=== PATIENT | male | born 1975 | race Two or more races ===

== ENCOUNTER 2023-10-02 12:20 | Inpatient (IN) | payer MEDICAID, OTHER ==
[~2023-10-02] VITALS: Ht 172.7 cm; Wt 63.5 kg
[2023-10-02 13:38] LABS: Basophils # (auto) 0.1 10 ^3/uL (0-0.2); Basophils % (auto) 0.5 % (0.0-2.0); Eosinophils # (auto) 0 10 ^3/uL (0-0.8); Eosinophils % (auto) 0.3 % (0.0-7.0); Hemoglobin 11.9 g/dL (13.5-17.5); Lymphocytes # (auto) 2.3 10 ^3/uL (0.4-5.4); Lymphocytes % (auto) 15.4 % (10.0-50.0); Mean Corpuscular Hemoglobin 30.2 pg (28.0-32.0); Mean Corpuscular Hgb Conc. 33.1 g/dL (32.0-36.0); Mean Corpuscular Volume 91.3 fL (80.0-100.0); Monocytes # (auto) 1.3 10 ^3/uL (0-1.3); Monocytes % (auto) 8.5 % (0.0-12.0); Neutrophils # (auto) 11.1 10 ^3/uL (1.6-8.6); Neutrophils % (auto) 75.3 % (37.0-80.0); Red Blood Cells 3.94 10^6/uL (4.5-5.90); Red Cell Distribution Width 12.1 % (11.8-14.3); White Blood Cell 14.8 10^3/uL (4.4-10.8)
[2023-10-02 13:55] LABS: Alanine Aminotransferase 77 U/L (7-40); Albumin 3.9 g/dL (3.2-4.8); Alkaline Phosphatase 140 U/L (46-116); Anion Gap 4 (5-15); Aspartate Aminotransferase 50 U/L (13-40); BUN/Creatinine Ratio 25.5 (10.0-20.0); Bilirubin, Total 0.3 mg/dL (0.2-1.0); Blood Urea Nitrogen 12 mg/dL (9-23); Calcium 9.2 mg/dL (8.5-10.1); Carbon Dioxide 29 mmol/L (20-30); Chloride 98 mmol/L (98-107); Glucose 91 mg/dL (74-106); Potassium 4.2 mmol/L (3.5-5.1); Sodium 131 mmol/L (136-145); Total Protein 7.4 g/dL (5.7-8.2)
[2023-10-02 13:58] LABS: INR 1.07 (0.9-1.15); Partial Thromboplastin Time 30.9 SEC (24.5-34.5); Prothrombin Time 11.3 sec (9.3-11.8)
[2023-10-02] MEDS: SODIUM CHLORIDE 0.9% 1,000 ML IV ONE (20:39)
[2023-10-02] MEDS: cefTRIAXone 1GM/50ML D5W 50 ML IV ONE (20:39)
[2023-10-02] MEDS ORDERED: ONDANSETRON HCL 4 MG/2 ML VIAL IV PRN (22:30)
[2023-10-02] MEDS ORDERED: ACETAMINOPHEN 325 MG TAB PO PRN (22:30)
[2023-10-02] MEDS ORDERED: HYDROcodone-ACET 5/325MG TAB PO PRN (22:30)
[2023-10-02 22:52] LABS: Urine Bacteria None Seen /hpf (None Seen)
[2023-10-02 23:15] LABS: Chloride 99 mmol/L (98-107); Potassium 4.2 mmol/L (3.5-5.1); Sodium 130 mmol/L (136-145)
[2023-10-02 23:16] LABS: Anion Gap 5 (5-15); Carbon Dioxide 26 mmol/L (20-30)
[2023-10-02 23:20] LABS: Urine Blood Negative /uL (Negative); Urine Clarity Clear (Clear); Urine Color Yellow (Yellow); Urine Protein, UAD TRACE (Negative); Urine Specific Gravity 1.022 (1.001-1.035); Urine Urobilinogen 2 mg/dL (Negative); Urine WBC <1 /hpf (0 - 3); Urine pH 8.5 (5.0-9.0)
[2023-10-02 23:21] LABS: Blood Urea Nitrogen 9 mg/dL (9-23); Glucose 83 mg/dL (74-106)
[2023-10-03] VITALS (9 sets, daily range): BP systolic 100–114; BP diastolic 63–77; PULSE 52–82; RESP 17–21; TEMP 97.7–98.1; O2SAT 94–97
[2023-10-03] MEDS: CLINDAMYCIN 600MG IV 50 ML IV SCH (02:16)
[2023-10-03 06:15] LABS: Basophils # (auto) 0.1 10 ^3/uL (0-0.2); Basophils % (auto) 0.5 % (0.0-2.0); Eosinophils # (auto) 0.1 10 ^3/uL (0-0.8); Eosinophils % (auto) 0.7 % (0.0-7.0); Hematocrit 35.6 % (41.0-53.0); Hemoglobin 11.7 g/dL (13.5-17.5); Lymphocytes # (auto) 2.3 10 ^3/uL (0.4-5.4); Lymphocytes % (auto) 21.3 % (10.0-50.0); Mean Corpuscular Hgb Conc. 32.9 g/dL (32.0-36.0); Mean Corpuscular Volume 91.4 fL (80.0-100.0); Monocytes % (auto) 9.4 % (0.0-12.0); Neutrophils # (auto) 7.5 10 ^3/uL (1.6-8.6); Neutrophils % (auto) 68.1 % (37.0-80.0); Red Cell Distribution Width 12.1 % (11.8-14.3)
[2023-10-03] MEDS ORDERED: cefTRIAXone 1GM/50ML D5W 50 ML IV SCH (09:00)
[2023-10-03] MEDS: FLUoxetine HCL 20 MG CAP PO SCH (10:38)
[2023-10-03] MEDS: ENOXAPARIN SOD 40 MG/0.4 ML SYRINGE SC SCH (10:38)
[2023-10-03] MEDS: cefTRIAXone 1GM/50ML D5W 50 ML IV SCH (10:40)
[2023-10-03] MEDS ORDERED: IPRATROPIUM BROM 0.5 MG/2.5ML INH SOL NEB PRN (15:15)
[2023-10-03] MEDS ORDERED: ONDANSETRON HCL 4 MG/2 ML VIAL IV PRN (15:15)
[2023-10-03] MEDS ORDERED: DOCUSATE SOD 100 MG CAP PO PRN (15:15)
[2023-10-03] MEDS ORDERED: ALBUTEROL SULF 2.5 MG/0.5ML(0.5%) NEB SOLN NEB PRN (15:15)
[2023-10-03] MEDS ORDERED: ACETAMINOPHEN 500 MG TAB PO PRN (15:15)
[2023-10-03] MEDS: MICAFUNGIN SODIUM 100 MG in SODIUM CHL 0.9% 100 ML IV SCH (18:32)
[2023-10-03] MEDS: NYSTATIN TOPICAL POWDER 15GM TOP SCH (22:00)
[2023-10-04] VITALS (9 sets, daily range): BP systolic 105–110; BP diastolic 66–72; PULSE 68–78; RESP 17–18; TEMP 97.2–98.4; O2SAT 94–95
[2023-10-04 06:03] LABS: Basophils # (auto) 0 10 ^3/uL (0-0.2); Basophils % (auto) 0.4 % (0.0-2.0); Eosinophils # (auto) 0.1 10 ^3/uL (0-0.8); Eosinophils % (auto) 0.5 % (0.0-7.0); Hematocrit 36.5 % (41.0-53.0); Hemoglobin 12.1 g/dL (13.5-17.5); Lymphocytes # (auto) 2.1 10 ^3/uL (0.4-5.4); Lymphocytes % (auto) 17.5 % (10.0-50.0); Mean Corpuscular Hemoglobin 30.2 pg (28.0-32.0); Mean Corpuscular Hgb Conc. 33.2 g/dL (32.0-36.0); Mean Corpuscular Volume 90.8 fL (80.0-100.0); Monocytes # (auto) 1.2 10 ^3/uL (0-1.3); Monocytes % (auto) 10.4 % (0.0-12.0); Neutrophils # (auto) 8.5 10 ^3/uL (1.6-8.6); Neutrophils % (auto) 71.2 % (37.0-80.0); Red Blood Cells 4.02 10^6/uL (4.5-5.90); Red Cell Distribution Width 12.2 % (11.8-14.3)
[2023-10-04 06:35] LABS: Alanine Aminotransferase 50 U/L (7-40); Albumin 3.7 g/dL (3.2-4.8); Alkaline Phosphatase 115 U/L (46-116); Anion Gap 9 (5-15); Aspartate Aminotransferase 29 U/L (13-40); BUN/Creatinine Ratio 22.7 (10.0-20.0); Blood Urea Nitrogen 10 mg/dL (9-23); Calcium 9.5 mg/dL (8.7-10.4); Carbon Dioxide 25 mmol/L (20-30); Chloride 95 mmol/L (98-107); Glucose 93 mg/dL (74-106); Potassium 3.9 mmol/L (3.5-5.1); Sodium 129 mmol/L (136-145)
[2023-10-04 06:36] LABS: Bilirubin, Total 0.3 mg/dL (0.2-1.0); Total Protein 7.1 g/dL (5.7-8.2)
[2023-10-04] MEDS: FLORASTOR (S. BOULARDII) 250 MG CAP PO SCH (09:39)
[2023-10-04] MEDS: LACTULOSE 20Gm/30ML SOLN PO SCH (23:48)
[2023-10-05] VITALS (9 sets, daily range): BP systolic 110–116; BP diastolic 72–77; PULSE 76–83; RESP 16–18; TEMP 97.5–99.3; O2SAT 93–96
[2023-10-05] MEDS ORDERED: levoFLOXacin 500MG 100 ML IV ONE (10:15)
[2023-10-05] MEDS: levoFLOXacin 750MG 150 ML IV ONE (10:45)
[2023-10-05 17:49] LABS: Basophils # (auto) 0.1 10 ^3/uL (0-0.2); Eosinophils # (auto) 0 10 ^3/uL (0-0.8); Lymphocytes # (auto) 2.6 10 ^3/uL (0.4-5.4); Lymphocytes % (auto) 21.3 % (10.0-50.0); Nucleated Red Blood Cells % 0.1 %; Red Cell Distribution Width 12.3 % (11.8-14.3); White Blood Cell 12.3 10^3/uL (4.4-10.8)
[2023-10-05 17:51] LABS: Eosinophils % (auto) 0.1 % (0.0-7.0); Hematocrit 38.7 % (41.0-53.0); Hemoglobin 13.3 g/dL (13.5-17.5); Mean Corpuscular Hemoglobin 31.1 pg (28.0-32.0); Mean Corpuscular Hgb Conc. 34.4 g/dL (32.0-36.0); Mean Corpuscular Volume 90.3 fL (80.0-100.0); Monocytes # (auto) 1.1 10 ^3/uL (0-1.3); Monocytes % (auto) 8.6 % (0.0-12.0); Neutrophils # (auto) 8.5 10 ^3/uL (1.6-8.6); Red Blood Cells 4.29 10^6/uL (4.5-5.90)
[2023-10-06] VITALS (9 sets, daily range): BP systolic 110–125; BP diastolic 66–82; PULSE 76–91; RESP 16–19; TEMP 97.4–98.7; O2SAT 94–98
[2023-10-06 06:08] LABS: Basophils # (auto) 0.1 10 ^3/uL (0-0.2); Eosinophils # (auto) 0.1 10 ^3/uL (0-0.8); Mean Corpuscular Volume 90.5 fL (80.0-100.0)
[2023-10-06 06:13] LABS: Basophils % (auto) 0.6 % (0.0-2.0); Eosinophils % (auto) 0.9 % (0.0-7.0); Hematocrit 39.5 % (41.0-53.0); Hemoglobin 13.3 g/dL (13.5-17.5); Lymphocytes # (auto) 2.4 10 ^3/uL (0.4-5.4); Lymphocytes % (auto) 19.8 % (10.0-50.0); Mean Corpuscular Hemoglobin 30.6 pg (28.0-32.0); Mean Corpuscular Hgb Conc. 33.8 g/dL (32.0-36.0); Monocytes # (auto) 1.1 10 ^3/uL (0-1.3); Neutrophils # (auto) 8.5 10 ^3/uL (1.6-8.6); Neutrophils % (auto) 69.7 % (37.0-80.0); Red Blood Cells 4.36 10^6/uL (4.5-5.90); Red Cell Distribution Width 11.9 % (11.8-14.3); White Blood Cell 12.2 10^3/uL (4.4-10.8)
[2023-10-06 06:16] LABS: Alanine Aminotransferase 57 U/L (7-40); Albumin 3.8 g/dL (3.2-4.8); Alkaline Phosphatase 118 U/L (46-116); Anion Gap 8 (5-15); Aspartate Aminotransferase 34 U/L (13-40); BUN/Creatinine Ratio 27.1 (10.0-20.0); Bilirubin, Total 0.3 mg/dL (0.2-1.0); Blood Urea Nitrogen 13 mg/dL (9-23); Calcium 9.4 mg/dL (8.7-10.4); Carbon Dioxide 25 mmol/L (20-30); Chloride 97 mmol/L (98-107); Glucose 94 mg/dL (74-106); Potassium 4.1 mmol/L (3.5-5.1); Sodium 130 mmol/L (136-145)
[2023-10-06 06:17] LABS: Total Protein 7.4 g/dL (5.7-8.2)
[2023-10-06] MEDS ORDERED: levoFLOXacin 500MG 100 ML IV SCH (10:00)
[2023-10-06] MEDS: HYDROcodone-ACET 5/325MG TAB PO PRN (12:34)
[2023-10-06] MEDS: levoFLOXacin 750MG 150 ML IV SCH (16:34)
[2023-10-06] MEDS: MUPIROCIN 2% OINT 15gm or 22gm FOR MRSA NARES EACHNOSTRI SCH (21:57)
[2023-10-07 00:58] VITALS: BP 116/76; PULSE 80; RESP 16; TEMP 97.5; O2SAT 95
[2023-10-07 05:05] VITALS: BP 116/74; PULSE 86; RESP 17; TEMP 97.8; O2SAT 93
[2023-10-07 09:00] VITALS: BP 121/83; PULSE 87; RESP 18; TEMP 97.8
[2023-10-07 12:36] VITALS: BP 114/70; PULSE 89; RESP 16; TEMP 98
[2023-10-07 16:33] VITALS: BP 115/75; PULSE 88; RESP 16; TEMP 97.8
[2023-10-07 22:00] VITALS: BP 118/76; PULSE 86; RESP 20; TEMP 97.5; O2SAT 94
[2023-10-08 01:00] VITALS: BP 111/76; PULSE 83; RESP 18; TEMP 97.8; O2SAT 93
[2023-10-08 05:00] VITALS: BP 113/76; PULSE 85; TEMP 97.6; O2SAT 94
[2023-10-08 06:26] LABS: Basophils # (auto) 0.1 10 ^3/uL (0-0.2); Basophils % (auto) 0.4 % (0.0-2.0); Eosinophils # (auto) 0.1 10 ^3/uL (0-0.8); Hemoglobin 13.2 g/dL (13.5-17.5)
[2023-10-08 06:30] LABS: Eosinophils % (auto) 0.5 % (0.0-7.0); Lymphocytes # (auto) 2.9 10 ^3/uL (0.4-5.4); Lymphocytes % (auto) 17.9 % (10.0-50.0); Mean Corpuscular Hemoglobin 30.4 pg (28.0-32.0); Mean Corpuscular Hgb Conc. 33.7 g/dL (32.0-36.0); Mean Corpuscular Volume 90.2 fL (80.0-100.0); Monocytes # (auto) 1.4 10 ^3/uL (0-1.3); Monocytes % (auto) 8.7 % (0.0-12.0); Neutrophils # (auto) 11.9 10 ^3/uL (1.6-8.6); Neutrophils % (auto) 72.5 % (37.0-80.0); Red Blood Cells 4.32 10^6/uL (4.5-5.90); Red Cell Distribution Width 12.2 % (11.8-14.3); White Blood Cell 16.5 10^3/uL (4.4-10.8)
[2023-10-08 06:38] LABS: Alanine Aminotransferase 37 U/L (7-40); Albumin 3.7 g/dL (3.2-4.8); Alkaline Phosphatase 105 U/L (46-116); Anion Gap 7 (5-15); Aspartate Aminotransferase 18 U/L (13-40); BUN/Creatinine Ratio 25.5 (10.0-20.0); Bilirubin, Total 0.3 mg/dL (0.2-1.0); Blood Urea Nitrogen 13 mg/dL (9-23); Calcium 9.3 mg/dL (8.7-10.4); Carbon Dioxide 26 mmol/L (20-30); Chloride 94 mmol/L (98-107); Glucose 90 mg/dL (74-106); Potassium 4.4 mmol/L (3.5-5.1); Sodium 127 mmol/L (136-145); Total Protein 7.2 g/dL (5.7-8.2)
[2023-10-08 08:55] VITALS: BP 122/78; PULSE 86; RESP 16; TEMP 97.8; O2SAT 95
[2023-10-08 12:33] VITALS: BP 109/69; PULSE 85; RESP 18; TEMP 97.7; O2SAT 96
[2023-10-08 17:00] VITALS: BP 124/73; PULSE 85; RESP 16; TEMP 97.8; O2SAT 98
[2023-10-08 20:41] VITALS: BP 131/81; PULSE 82; RESP 18; TEMP 97.8; O2SAT 97
[2023-10-09 01:00] VITALS: BP 127/77; PULSE 78; RESP 18; TEMP 98.2; O2SAT 93
[2023-10-09 05:02] VITALS: BP 124/84; PULSE 84; RESP 18; TEMP 98; O2SAT 98
[2023-10-09 07:02] LABS: Basophils # (auto) 0.1 10 ^3/uL (0-0.2); Basophils % (auto) 0.4 % (0.0-2.0); Eosinophils # (auto) 0.1 10 ^3/uL (0-0.8); Eosinophils % (auto) 0.7 % (0.0-7.0); Hematocrit 41.6 % (41.0-53.0); Hemoglobin 14.1 g/dL (13.5-17.5); Lymphocytes # (auto) 3.4 10 ^3/uL (0.4-5.4); Lymphocytes % (auto) 21.4 % (10.0-50.0); Mean Corpuscular Hemoglobin 30.6 pg (28.0-32.0); Mean Corpuscular Hgb Conc. 33.9 g/dL (32.0-36.0); Mean Corpuscular Volume 90.3 fL (80.0-100.0); Monocytes # (auto) 1.3 10 ^3/uL (0-1.3); Monocytes % (auto) 8.1 % (0.0-12.0); Neutrophils # (auto) 10.9 10 ^3/uL (1.6-8.6); Neutrophils % (auto) 69.4 % (37.0-80.0); Red Blood Cells 4.61 10^6/uL (4.5-5.90); Red Cell Distribution Width 12.2 % (11.8-14.3); White Blood Cell 15.8 10^3/uL (4.4-10.8)
[2023-10-09 07:27] LABS: Anion Gap 0 (5-15); Carbon Dioxide 30 mmol/L (20-30); Chloride 92 mmol/L (98-107); Potassium 4.4 mmol/L (3.5-5.1)
[2023-10-09 07:28] LABS: Calcium 9.5 mg/dL (8.5-10.1)
[2023-10-09 07:33] LABS: BUN/Creatinine Ratio 17.3 (10.0-20.0); Blood Urea Nitrogen 9 mg/dL (9-23); Glucose 88 mg/dL (74-106)
[2023-10-09 07:37] LABS: Sodium 122 mmol/L (136-145)
[2023-10-09 09:09] VITALS: BP 124/78; PULSE 85; RESP 16; TEMP 98.6; O2SAT 95
[2023-10-09 12:47] VITALS: BP 120/83; PULSE 42; RESP 20; TEMP 98.1; O2SAT 94
[2023-10-09] MEDS: FUROSEMIDE 20 MG TAB PO ONE (17:12)
[2023-10-09 17:24] VITALS: BP 124/68; PULSE 51; RESP 16; TEMP 98.4; O2SAT 95
[2023-10-09 21:00] VITALS: BP 109/73; PULSE 91; RESP 17; TEMP 98.7; O2SAT 95
[2023-10-10 00:56] VITALS: BP 114/82; PULSE 74; RESP 16; TEMP 97.6; O2SAT 95
[2023-10-10 05:00] VITALS: BP 119/80; PULSE 84; RESP 17; TEMP 98.3; O2SAT 96
[2023-10-10 08:30] VITALS: BP_SYST 116; BP_SYST 120; BP_DIAS 66; BP_DIAS 79; PULSE 68; PULSE 80; RESP 18; RESP 19; TEMP 98; TEMP 98.2; O2SAT 94; O2SAT 96
[2023-10-10 12:30] VITALS: BP 116/69; PULSE 71; RESP 20; TEMP 98.1; O2SAT 95
[2023-10-10] MEDS: NYSTATIN TOPICAL POWDER 15GM TOP SCH (13:18)
[2023-10-10 14:39] LABS: Basophils # (auto) 0.1 10 ^3/uL (0-0.2); Eosinophils # (auto) 0 10 ^3/uL (0-0.8)
[2023-10-10 14:40] LABS: Basophils % (auto) 0.8 % (0.0-2.0); Eosinophils % (auto) 0.3 % (0.0-7.0); Hematocrit 42.4 % (41.0-53.0); Lymphocytes # (auto) 2.8 10 ^3/uL (0.4-5.4); Lymphocytes % (auto) 20.4 % (10.0-50.0); Mean Corpuscular Hemoglobin 29.8 pg (28.0-32.0); Mean Corpuscular Volume 90.3 fL (80.0-100.0); Monocytes # (auto) 1.2 10 ^3/uL (0-1.3); Neutrophils # (auto) 9.5 10 ^3/uL (1.6-8.6); Neutrophils % (auto) 69.5 % (37.0-80.0); Red Cell Distribution Width 12.3 % (11.8-14.3); White Blood Cell 13.7 10^3/uL (4.4-10.8)
[2023-10-10 14:48] LABS: Chloride 94 mmol/L (98-107); Potassium 4.3 mmol/L (3.5-5.1); Sodium 122 mmol/L (136-145)
[2023-10-10 14:49] LABS: Anion Gap 6 (5-15); Calcium 9.4 mg/dL (8.5-10.1); Carbon Dioxide 22 mmol/L (20-30)
[2023-10-10 14:54] LABS: BUN/Creatinine Ratio 17.5 (10.0-20.0); Blood Urea Nitrogen 10 mg/dL (9-23); Glucose 115 mg/dL (74-106)
[2023-10-10 16:57] VITALS: BP 119/76; PULSE 78; RESP 20; TEMP 98; O2SAT 97
[2023-10-10 21:00] VITALS: BP 118/70; PULSE 82; RESP 18; TEMP 98; O2SAT 96
[2023-10-11 01:00] VITALS: BP 116/76; PULSE 75; RESP 18; TEMP 97.9; O2SAT 96
[2023-10-11 05:00] VITALS: BP 118/72; PULSE 76; RESP 20; TEMP 98; O2SAT 97
[2023-10-11 09:00] VITALS: BP 122/82; PULSE 82; RESP 19; TEMP 97.7; O2SAT 95
[2023-10-11] MEDS: levoFLOXacin 500 MG TAB PO SCH (11:36)
[2023-10-11 12:47] VITALS: BP 110/77; PULSE 77; RESP 21; O2SAT 95
[2023-10-11] MEDS: AMPICILLIN SOD 2GM INJ 2 GM in SODIUM CHL 0.9% 100 ML IV SCH (18:50)
[2023-10-11 20:00] VITALS: RESP 18
[2023-10-11 21:00] VITALS: BP 119/77; PULSE 97; RESP 18; TEMP 99; O2SAT 93
[2023-10-11] MEDS: SODIUM CHLORIDE 1 GM TAB PO SCH (21:39)
[2023-10-12 01:00] VITALS: BP 127/79; PULSE 87; RESP 19; TEMP 98.7; O2SAT 96
[2023-10-12 09:00] VITALS: BP 130/77; PULSE 78; RESP 17; TEMP 97.7; O2SAT 95
[2023-10-12 11:14] LABS: Basophils # (auto) 0.1 10 ^3/uL (0-0.2); Lymphocytes % (auto) 24.7 % (10.0-50.0)
[2023-10-12 11:15] LABS: Basophils % (auto) 0.6 % (0.0-2.0); Eosinophils # (auto) 0.1 10 ^3/uL (0-0.8); Eosinophils % (auto) 0.6 % (0.0-7.0); Hematocrit 39.9 % (41.0-53.0); Hemoglobin 13.7 g/dL (13.5-17.5); Lymphocytes # (auto) 2.5 10 ^3/uL (0.4-5.4); Mean Corpuscular Hemoglobin 30.9 pg (28.0-32.0); Mean Corpuscular Hgb Conc. 34.4 g/dL (32.0-36.0); Mean Corpuscular Volume 89.8 fL (80.0-100.0); Monocytes # (auto) 1.1 10 ^3/uL (0-1.3); Monocytes % (auto) 10.4 % (0.0-12.0); Neutrophils # (auto) 6.5 10 ^3/uL (1.6-8.6); Neutrophils % (auto) 63.7 % (37.0-80.0); Red Blood Cells 4.44 10^6/uL (4.5-5.90); Red Cell Distribution Width 12.5 % (11.8-14.3); White Blood Cell 10.3 10^3/uL (4.4-10.8)
[2023-10-12 11:33] LABS: Chloride 96 mmol/L (98-107); Potassium 4.3 mmol/L (3.5-5.1); Sodium 126 mmol/L (136-145)
[2023-10-12 11:34] LABS: Anion Gap 6 (5-15); Calcium 9.2 mg/dL (8.7-10.4); Carbon Dioxide 24 mmol/L (20-30)
[2023-10-12 11:39] LABS: BUN/Creatinine Ratio 17.4 (10.0-20.0); Blood Urea Nitrogen 8 mg/dL (9-23); Glucose 94 mg/dL (74-106)
[2023-10-12] MEDS: FUROSEMIDE 40 MG TAB PO SCH (11:42)
[2023-10-12] MEDS: POTASSIUM EFFERVESENT TAB 25 MEQ PO SCH (11:43)
[2023-10-12 13:00] VITALS: BP 118/77; PULSE 82; RESP 21; TEMP 97.8; O2SAT 96
[2023-10-12] MEDS: MICAFUNGIN SODIUM 100 MG in SODIUM CHL 0.9% 100 ML IV SCH (13:09)
[2023-10-12 20:00] VITALS: PULSE 80; RESP 18
[2023-10-12 20:50] VITALS: BP 121/78; PULSE 80; RESP 18; TEMP 98.1; O2SAT 95
[2023-10-13 01:00] VITALS: BP 110/77; PULSE 78; RESP 18; TEMP 98; O2SAT 94
[2023-10-13 05:00] VITALS: BP 109/78; PULSE 75; RESP 18; TEMP 97.8; O2SAT 96
[2023-10-13 09:00] VITALS: BP 114/84; PULSE 91; RESP 17; TEMP 98.2; O2SAT 94
[2023-10-13 17:00] VITALS: BP 119/81; PULSE 95; RESP 18; TEMP 98; O2SAT 95
[2023-10-13] MEDS: AMPICILLIN SOD 2GM INJ 2 GM in SODIUM CHL 0.9% 100 ML IV SCH (21:00)
[2023-10-13 22:00] VITALS: BP 128/84; PULSE 103; RESP 17; TEMP 98.5; O2SAT 95
[2023-10-14] VITALS (7 sets, daily range): BP systolic 114–128; BP diastolic 78–93; PULSE 80–102; RESP 16–20; TEMP 97.1–98.3; O2SAT 93–97
[2023-10-14 09:36] LABS: Alanine Aminotransferase 27 U/L (7-40); Albumin 3.9 g/dL (3.2-4.8); Alkaline Phosphatase 105 U/L (46-116); Anion Gap 2 (5-15); Aspartate Aminotransferase 17 U/L (13-40); Bilirubin, Total 0.4 mg/dL (0.2-1.0); Blood Urea Nitrogen 18 mg/dL (9-23); Calcium 9.5 mg/dL (8.5-10.1); Carbon Dioxide 29 mmol/L (20-30); Chloride 101 mmol/L (98-107); Glucose 111 mg/dL (74-106); Potassium 4.2 mmol/L (3.5-5.1); Total Protein 7.4 g/dL (5.7-8.2)
[2023-10-14 09:40] LABS: Sodium 132 mmol/L (136-145)
[2023-10-14] MEDS: MORPHINE SULFATE INJ 2 MG/ml SYRG IV PRN (10:44)
[2023-10-15] VITALS (8 sets, daily range): BP systolic 99–118; BP diastolic 72–86; PULSE 87–112; RESP 18–20; TEMP 97.8–98.6; O2SAT 93–100
[2023-10-15 05:36] LABS: Anion Gap 3 (5-15); Carbon Dioxide 31 mmol/L (20-30); Chloride 102 mmol/L (98-107); Sodium 136 mmol/L (136-145)
[2023-10-15 05:37] LABS: Calcium 9.8 mg/dL (8.7-10.4)
[2023-10-15 05:42] LABS: BUN/Creatinine Ratio 30.6 (10.0-20.0); Blood Urea Nitrogen 19 mg/dL (9-23); Glucose 95 mg/dL (74-106)
[2023-10-15] MEDS: HALOPERIDOL LACTATE 5 MG/ML INJ VIAL IM PRN (11:16)
[2023-10-16] VITALS (7 sets, daily range): BP systolic 111–132; BP diastolic 64–89; PULSE 79–86; RESP 16–18; TEMP 97.9; O2SAT 95–100
[2023-10-16 12:05] LABS: Anion Gap 4 (5-15); Carbon Dioxide 27 mmol/L (20-30); Chloride 101 mmol/L (98-107); Potassium 3.6 mmol/L (3.5-5.1); Sodium 132 mmol/L (136-145)
[2023-10-16 12:06] LABS: Calcium 9.2 mg/dL (8.5-10.1)
[2023-10-16 12:11] LABS: BUN/Creatinine Ratio 19.1 (10.0-20.0); Blood Urea Nitrogen 9 mg/dL (9-23); Glucose 117 mg/dL (74-106)
[2023-10-16] MEDS ORDERED: MYC15TP TOP (13:35)
[2023-10-16] MEDS ORDERED: AMPI500C9 PO (13:35)
[2023-10-17 01:10] VITALS: BP 120/68; PULSE 80; RESP 18; TEMP 97.9; O2SAT 98
[2023-10-17 05:17] VITALS: BP 113/63; PULSE 81; RESP 18; TEMP 98; O2SAT 98
[2023-10-17 08:00] VITALS: PULSE 94; RESP 18
[2023-10-17 09:00] VITALS: BP 123/80; PULSE 94; RESP 18; TEMP 98.4; O2SAT 94
== END 2023-10-17 12:40 | DRG 720 ==
LOC: EDBD 12:20 → ER 12:23 → OVERFLOW 22:26 → WEST WING 10-03 01:32 → CENTRAL 10-05 00:09
PROVIDERS: ADMIT Internal Medicine; ATTEND Internal Medicine
DX: A41.9 Sepsis, unspecified organism (principal); J69.0 Pneumonitis due to inhalation of food and vomit; J15.69 Pneumonia due to other Gram-negative bacteria; E22.2 Syndrome of inappropriate secretion of antidiuretic hormone; L03.311 Cellulitis of abdominal wall; J15.9 Unspecified bacterial pneumonia; R47.01 Aphasia; Z87.820 Personal history of traumatic brain injury; K59.00 Constipation, unspecified
CPT/HCPCS: 36415; 71045; 74176; 80048; 80053; 81001; 82306; 82533; 82570; 83605; 83880; 83930; 83935; 84100; 84300; 84443; 85025; 85610; 85730; 87040; 87077; 87081; 87186; 87205; 92610; 96365; 97110; 97163; 97530; G0378; J1956; J2248; J3490

== ENCOUNTER 2023-11-03 17:36 | Inpatient (IN) | payer MEDICAID ==
[~2023-11-03] VITALS: Ht 182.9 cm; Wt 72.7 kg
[~2023-11-03 17:36] MED LIST: AMPI500C9 PO; MYC15TP TOP
[2023-11-03 18:51] VITALS: PULSE 84; RESP 12; O2SAT 95
[2023-11-03 18:56] LABS: Urine Bacteria None Seen /hpf (None Seen)
[2023-11-03 19:29] LABS: Chloride 106 mmol/L (98-107); Potassium 4.9 mmol/L (3.5-5.1); Sodium 136 mmol/L (136-145)
[2023-11-03 19:30] LABS: Anion Gap 5 (5-15); Calcium 8.9 mg/dL (8.7-10.4); Carbon Dioxide 25 mmol/L (20-30)
[2023-11-03 19:35] LABS: BUN/Creatinine Ratio 30.3 (10.0-20.0); Blood Urea Nitrogen 27 mg/dL (9-23); Glucose 100 mg/dL (74-106)
[2023-11-03 19:37] LABS: Urine Blood Negative /uL (Negative); Urine Clarity Clear (Clear); Urine Color Light-Yellow (Yellow); Urine Protein, UAD Negative (Negative); Urine Specific Gravity 1.029 (1.001-1.035); Urine Urobilinogen Normal (Negative); Urine WBC 1 /hpf (0 - 3)
[2023-11-03 20:20] LABS: Basophils # (auto) 0 10 ^3/uL (0-0.2); Basophils % (auto) 0.5 % (0.0-2.0); Eosinophils # (auto) 0.1 10 ^3/uL (0-0.8); Eosinophils % (auto) 0.7 % (0.0-7.0); Hemoglobin 12.3 g/dL (13.5-17.5); Lymphocytes # (auto) 3.4 10 ^3/uL (0.4-5.4); Lymphocytes % (auto) 40.2 % (10.0-50.0); Mean Corpuscular Hgb Conc. 33.2 g/dL (32.0-36.0); Mean Corpuscular Volume 90.4 fL (80.0-100.0); Monocytes # (auto) 0.8 10 ^3/uL (0-1.3); Monocytes % (auto) 8.8 % (0.0-12.0); Neutrophils # (auto) 4.2 10 ^3/uL (1.6-8.6); Neutrophils % (auto) 49.8 % (37.0-80.0); Red Blood Cells 4.09 10^6/uL (4.5-5.90); Red Cell Distribution Width 13.3 % (11.8-14.3); White Blood Cell 8.5 10^3/uL (4.4-10.8)
[2023-11-03] MEDS: HALOPERIDOL LACTATE 5 MG/ML INJ VIAL IV ONE (21:43)
[2023-11-03] MEDS ORDERED: NITR-87 PO (22:03)
[2023-11-03] MEDS ORDERED: ACETAMINOPHEN 325 MG TAB PO PRN (23:00)
[2023-11-03] MEDS ORDERED: ONDANSETRON HCL 4 MG/2 ML VIAL IV PRN (23:00)
[2023-11-04 04:24] LABS: Chloride 102 mmol/L (98-107); Potassium 4.2 mmol/L (3.5-5.1); Sodium 135 mmol/L (136-145)
[2023-11-04 04:25] LABS: Anion Gap 3 (5-15); Calcium 9.2 mg/dL (8.7-10.4); Carbon Dioxide 30 mmol/L (20-30)
[2023-11-04 04:30] LABS: BUN/Creatinine Ratio 25.4 (10.0-20.0); Blood Urea Nitrogen 16 mg/dL (9-23); Glucose 83 mg/dL (74-106)
[2023-11-04] MEDS: LORazepam 2MG/ML-1ML VIAL IV PRN (05:03)
[2023-11-04 07:38] VITALS: PULSE 70; RESP 16; O2SAT 98
[2023-11-04] MEDS: ENOXAPARIN SOD 40 MG/0.4 ML SYRINGE SC SCH (10:12)
[2023-11-04] MEDS: ATORVASTATIN 20 MG TAB PO ONE (15:00)
[2023-11-04] MEDS: ASPirin 81 mg TAB PO ONE (15:00)
[2023-11-04 16:03] LABS: Folate (Folic Acid) 6.98 ng/mL (>5.38)
[2023-11-04 23:27] VITALS: RESP 16; O2SAT 94
[2023-11-05] MEDS: cefTRIAXone 1GM/50ML D5W 50 ML IV ONE (01:42)
[2023-11-05 05:51] LABS: Basophils # (auto) 0 10 ^3/uL (0-0.2); Basophils % (auto) 0.3 % (0.0-2.0); Eosinophils # (auto) 0.1 10 ^3/uL (0-0.8); Eosinophils % (auto) 0.7 % (0.0-7.0); Hematocrit 41.2 % (41.0-53.0); Hemoglobin 13.9 g/dL (13.5-17.5); Lymphocytes # (auto) 2.7 10 ^3/uL (0.4-5.4); Lymphocytes % (auto) 26.6 % (10.0-50.0); Mean Corpuscular Hemoglobin 30.1 pg (28.0-32.0); Mean Corpuscular Hgb Conc. 33.7 g/dL (32.0-36.0); Mean Corpuscular Volume 89.4 fL (80.0-100.0); Monocytes # (auto) 0.9 10 ^3/uL (0-1.3); Monocytes % (auto) 8.5 % (0.0-12.0); Neutrophils # (auto) 6.4 10 ^3/uL (1.6-8.6); Neutrophils % (auto) 63.9 % (37.0-80.0); Nucleated Red Blood Cells % 0.1 %; Red Blood Cells 4.61 10^6/uL (4.5-5.90); Red Cell Distribution Width 13.1 % (11.8-14.3); White Blood Cell 10.1 10^3/uL (4.4-10.8)
[2023-11-05 06:01] LABS: Alanine Aminotransferase 34 U/L (7-40); Albumin 3.9 g/dL (3.2-4.8); Alkaline Phosphatase 100 U/L (46-116); Anion Gap 10 (5-15); Aspartate Aminotransferase 19 U/L (13-40); BUN/Creatinine Ratio 20.8 (10.0-20.0); Bilirubin, Total 0.4 mg/dL (0.2-1.0); Blood Urea Nitrogen 11 mg/dL (9-23); Calcium 9.3 mg/dL (8.7-10.4); Carbon Dioxide 22 mmol/L (20-30); Chloride 97 mmol/L (98-107); Glucose 90 mg/dL (74-106); Potassium 4.1 mmol/L (3.5-5.1); Sodium 129 mmol/L (136-145)
[2023-11-05 06:04] LABS: Free T3 3.39 pg/mL (2.3-4.2)
[2023-11-05 06:05] LABS: Free T4 (Free Thyroxine) 1.07 ng/dL (0.89-1.76)
[2023-11-05 07:54] VITALS: PULSE 75; RESP 18; O2SAT 95
[2023-11-05] MEDS: cefTRIAXone 1GM/50ML D5W 50 ML IV SCH (08:25)
[2023-11-05] MEDS: ASPirin 81 mg TAB PO SCH (10:13)
[2023-11-05 10:33] LABS: COVID19 ANTIGEN SOFIA FIA NEGATIVE (NEGATIVE)
[2023-11-05] MEDS: CLINDAMYCIN 600MG IV 50 ML IV ONE (15:30)
[2023-11-05 17:10] VITALS: BP 138/77; PULSE 77; RESP 18; TEMP 98.6; O2SAT 95
[2023-11-05 20:00] VITALS: RESP 18; O2SAT 94
[2023-11-05] MEDS: CLINDAMYCIN 600MG IV 50 ML IV SCH (21:31)
[2023-11-05] MEDS: ATORVASTATIN 20 MG TAB PO SCH (21:31)
[2023-11-06 07:08] LABS: Basophils # (auto) 0 10 ^3/uL (0-0.2); Basophils % (auto) 0.1 % (0.0-2.0); Eosinophils # (auto) 0 10 ^3/uL (0-0.8); Eosinophils % (auto) 0.2 % (0.0-7.0); Hematocrit 40.6 % (41.0-53.0); Hemoglobin 13.6 g/dL (13.5-17.5); Lymphocytes # (auto) 2.4 10 ^3/uL (0.4-5.4); Lymphocytes % (auto) 16.4 % (10.0-50.0); Mean Corpuscular Hemoglobin 29.6 pg (28.0-32.0); Mean Corpuscular Hgb Conc. 33.6 g/dL (32.0-36.0); Mean Corpuscular Volume 88.3 fL (80.0-100.0); Monocytes # (auto) 1.1 10 ^3/uL (0-1.3); Monocytes % (auto) 7.4 % (0.0-12.0); Neutrophils % (auto) 75.9 % (37.0-80.0); Red Cell Distribution Width 13.3 % (11.8-14.3); White Blood Cell 14.5 10^3/uL (4.4-10.8)
[2023-11-06 07:41] LABS: Alanine Aminotransferase 38 U/L (7-40); Alkaline Phosphatase 115 U/L (46-116); Anion Gap 6 (5-15); Blood Urea Nitrogen 12 mg/dL (9-23); Calcium 9.4 mg/dL (8.5-10.1); Carbon Dioxide 25 mmol/L (20-30); Chloride 95 mmol/L (98-107); Glucose 88 mg/dL (74-106); Sodium 126 mmol/L (136-145)
[2023-11-06 07:42] LABS: Aspartate Aminotransferase 21 U/L (13-40); Bilirubin, Total 0.6 mg/dL (0.2-1.0)
[2023-11-06 08:00] VITALS: PULSE 76; RESP 18; O2SAT 96
[2023-11-06 13:00] VITALS: BP 122/74; PULSE 85; RESP 18; TEMP 98; O2SAT 94
[2023-11-06 17:00] VITALS: BP 120/72; PULSE 91; RESP 20; TEMP 98.5; O2SAT 94
[2023-11-06 17:39] VITALS: TEMP 36.9
[2023-11-06] MEDS ORDERED: ATOR20TA50 PO (18:25)
[2023-11-06] MEDS ORDERED: ASPI-325 PO (18:25)
[2023-11-06] MEDS ORDERED: CLIN1CAP70 PO (18:25)
== END 2023-11-06 20:30 | disposition home or self-care (01) | DRG 383 ==
LOC: EDBD 17:36 → ER 17:36 → OVERFLOW 23:00 → WEST WING 11-05 17:01
PROVIDERS: ADMIT Internal Medicine Pulmonary Disease; ATTEND Internal Medicine Pulmonary Disease
DX: L03.311 Cellulitis of abdominal wall (principal); N30.90 Cystitis, unspecified without hematuria; G93.89 Other specified disorders of brain; D64.9 Anemia, unspecified; E03.9 Hypothyroidism, unspecified; Z87.820 Personal history of traumatic brain injury
CPT/HCPCS: 36415; 70450; 70551; 71045; 74176; 80048; 80053; 81001; 82607; 82746; 84439; 84443; 84481; 85025; 87077; 87086; 87186; 87205; 87426; 92610; 93005; 93306; 93886; G0378; J3490